=== PATIENT | male | born 1955 | race Caucasian/White ===

== ENCOUNTER → 2019-12-17 | Outpatient (CLI) | payer OTHER ==
[~2019-12-17] MED LIST: ALEVE220 M1 PO; ALEVE220 MG PO; FISH OIL 1,0001 EAC5 PO; MULTIVITAMINS PO
== END ==
LOC: CAT 14:11
DX: Z13.6 Encounter for screening for cardiovascular disorders (principal); I25.10 Atherosclerotic heart disease of native coronary artery without angina pectoris; E78.00 Pure hypercholesterolemia, unspecified